=== PATIENT | male | born 1955 | race Two or more races ===

== ENCOUNTER 2023-06-30 08:48 | Day surgery (SDC) | payer BC ==
[2023-06-25 09:46] LABS: BASOPHILS # (AUTO) 0.1 X10'3 (0-0.2); BASOPHILS % (AUTO) 0.8 % (0-1); EOSINOPHILS # (AUTO) 0.3 X10'3 (0-0.9); EOSINOPHILS % (AUTO) 3.8 % (0-6); LYMPHOCYTES # (AUTO) 0.9 X10'3 (1.1-4.8); MEAN CORPUSCULAR HGB CONC 32.7 g/dL (33.0-36.5); MEAN CORPUSCULAR VOLUME 94.8 FL (78-98); MEAN PLATELET VOLUME 9.4 FL (7.4-10.4); MONOCYTES # (AUTO) 0.8 X10'3 (0-0.9); MONOCYTES % (AUTO) 11.1 % (2-12); NEUTROPHILS # (AUTO) 5.5 X10'3 (1.8-7.7); NEUTROPHILS % (AUTO) 72.3 % (42-75); PRE OP HEMATOCRIT 41.8 % (42.0-52.0); PRE OP HEMOGLOBIN 13.6 g/dL (14.0-17.9); PRE OP PLATELET COUNT 160 X10'3 (140-440); PRE OP WHITE BLOOD COUNT 7.6 10'3 (4.8-10.8); RED BLOOD COUNT 4.41 X10'6 (4.70-6.10); RED CELL DISTRIBUTION WIDTH 15.4 % (11.5-14.5)
[2023-06-25 10:00] LABS: ALKALINE PHOSPHATASE 107 IU/L (46-116); CHLORIDE 108 MMOL/L (99-107); PRE OP ANION GAP 12 (8-16); PRE OP POTASSIUM 4.8 MMOL/L (3.4-5.1); PRE OP SODIUM 137 MMOL/L (135-145); TOTAL CARBON DIOXIDE 17.5 MMOL/L (24-32); TOTAL PROTEIN 7.6 G/DL (6.4-8.2)
[2023-06-25 10:01] LABS: ALBUMIN 3.8 G/DL (3.4-5.0); BLOOD UREA NITROGEN 30 MG/DL (7-18); CALCIUM 9.2 MG/DL (8.5-10.1); PRE OP ALT 22 U/L (30-65); PRE OP AST 25 U/L (10-37); PRE OP GLUCOSE 153 MG/DL (70-104); eGFR 33 ML/MIN
[~2023-06-30] VITALS: Ht 157.5 cm; Wt 73.2 kg
[~2023-06-30 08:48] MED LIST: ATOR40TA72 PO; BUPIVAcaine/PF 2.5mg/ml (0.25%) 10ml vial ONE; CELE-127 PO; DOCUMENT DATE & TIME OF BETA-BLOCKER PO ONE; FURO40TA4 PO; LOSA25TA41 PO; METO-395 PO; SITA100T15 PO; ZAR2.5T PO; cefazolin 2gm/D5W 100mL 100 ML IV ONE; famotidine 20mg tablet PO ONE; ringers solution, lacted 1,000 ML IV SCH
[2023-06-30 09:20] VITALS: BP 115/65; PULSE 85; RESP 16; TEMP 97.5; O2SAT 100
[2023-06-30] MEDS ORDERED: LIDOcaine 1% 30ml preserv. free vial ONE (09:46)
[2023-06-30] MEDS ORDERED: fentaNYL/PF 50MCG/1 ML 2ML syringe ONE (10:10)
[2023-06-30] MEDS ORDERED: midazolam 1 mg/ML 2ml injection ONE (10:10)
[2023-06-30] MEDS ORDERED: sevoflurane 250ml liquid IH ONE (10:48)
[2023-06-30 11:38] VITALS: BP 109/78; PULSE 74; RESP 16; O2SAT 98
--- NOTE | 2023-06-30 11:38 | NUR ---
Received from OR via [facility] TO RR 7, accompanied by Anesthesiologist DUY and report given by Anesthesiologist. PATIENT A&OX4, PT DENIES N/V/PAIN, VSS, NEUROVASCULAR CHECKS INTACT, PIV TO RHAND 20G, ICE AND ELEVATION TO LEFT HAND CDI DRESSING.
[2023-06-30 11:50] VITALS: BP 113/84; PULSE 75; RESP 14; O2SAT 95
[2023-06-30 12:00] VITALS: BP 117/84; PULSE 74; RESP 10; O2SAT 95
[2023-06-30 12:10] VITALS: BP 129/90; PULSE 78; RESP 19; O2SAT 99
--- NOTE | 2023-06-30 12:38 | NUR ---
PT HAS MET D/C CRITERIA. IV D/C'D. VSS. DRESSING C/D/I. ICE INTACT. I HAVE REVIEWED D/C INSTRUCTIONS WITH PATIENT AND HE HAS VERBALIZED UNDERSTANDING OF INSTRUCTIONS. ALL QUESTIONS, COMMENTS, AND CONCERNS WERE ANSWERED AT THIS TIME. LEFT HAND DRESSING REMAINS CDI. PT WAS ABLE TO GET DRESSED WITH ASSISTANCE AND AMBULATED TO W/C WITH STANDBY ASSIST. PT WAS WHEELED OUT TO PRIVATE VEHICLE AND TRANSFERRED INTO VEHICLE WITHOUT INCIDENT. PATIENT D/C HOME WITH ALL BELONGINGS.
== END 2023-06-30 12:38 | disposition home or self-care (01) ==
LOC: PAS 08:48
PROVIDERS: ATTEND Orthopaedic Surgery Hand Surgery
DX: M65.312 Trigger thumb, left thumb (principal); M65.332 Trigger finger, left middle finger; M65.342 Trigger finger, left ring finger; R22.32 Localized swelling, mass and lump, left upper limb; M10.9 Gout, unspecified; I13.0 Hypertensive heart and chronic kidney disease with heart failure and stage 1 through stage 4 chronic kidney disease, or unspecified chronic kidney disease; E11.22 Type 2 diabetes mellitus with diabetic chronic kidney disease; N18.30 Chronic kidney disease, stage 3 unspecified; I50.9 Heart failure, unspecified; E78.5 Hyperlipidemia, unspecified; I25.2 Old myocardial infarction; Z87.442 Personal history of urinary calculi; Z79.899 Other long term (current) drug therapy
CPT/HCPCS: 26055; 26116; 36415; 80053; 82948; 85025; 93005; J0690; J2250; J3010; J3490; J7030; J7120; Z7506; Z7512; A4215; A6449

== ENCOUNTER 2023-11-03 05:13 | Day surgery (SDC) | payer BC ==
[2023-10-28 12:13] LABS: BASOPHILS # (AUTO) 0.1 X10'3 (0-0.2); BASOPHILS % (AUTO) 0.7 % (0-1); EOSINOPHILS # (AUTO) 0.3 X10'3 (0-0.9); LYMPHOCYTES # (AUTO) 0.7 X10'3 (1.1-4.8); LYMPHOCYTES % (AUTO) 7.5 % (21-51); MEAN CORPUSCULAR HEMOGLOBIN 30.8 PG (27.0-31.0); MEAN CORPUSCULAR HGB CONC 33.1 g/dL (33.0-36.5); MEAN CORPUSCULAR VOLUME 92.8 FL (78-98); MEAN PLATELET VOLUME 9.6 FL (7.4-10.4); MONOCYTES # (AUTO) 0.9 X10'3 (0-0.9); MONOCYTES % (AUTO) 10.4 % (2-12); NEUTROPHILS # (AUTO) 6.9 X10'3 (1.8-7.7); NEUTROPHILS % (AUTO) 78.4 % (42-75); PRE OP HEMATOCRIT 44.2 % (42.0-52.0); PRE OP HEMOGLOBIN 14.7 g/dL (14.0-17.9); PRE OP PLATELET COUNT 135 X10'3 (140-440); PRE OP WHITE BLOOD COUNT 8.8 10'3 (4.8-10.8); RED BLOOD COUNT 4.77 X10'6 (4.70-6.10); RED CELL DISTRIBUTION WIDTH 16.4 % (11.5-14.5)
[2023-10-28 12:29] LABS: ALBUMIN 3.7 G/DL (3.4-5.0); ALBUMIN/GLOBULIN RATIO 0.8 (1.1-1.5); ALKALINE PHOSPHATASE 174 IU/L (46-116); BLOOD UREA NITROGEN 51 MG/DL (7-18); BUN/CREATININE RATIO 25.5 (10.0-20.0); CALCIUM 9.1 MG/DL (8.5-10.1); PRE OP ALT 20 U/L (30-65); PRE OP AST 19 U/L (10-37); PRE OP BILIRUB, TOTAL 2.4 MG/DL (0.0-1.0); PRE OP POTASSIUM 4.6 MMOL/L (3.4-5.1); PRE OP SODIUM 135 MMOL/L (135-145); TOTAL CARBON DIOXIDE 24.5 MMOL/L (24-32); TOTAL PROTEIN 8.4 G/DL (6.4-8.2); eGFR 33 ML/MIN
[2023-10-28 12:31] LABS: CHLORIDE 102 MMOL/L (99-107); PRE OP ANION GAP 9 (8-16); PRE OP GLUCOSE 221 MG/DL (70-104)
[2023-11-03] VITALS (8 sets, daily range): BP systolic 110–128; BP diastolic 76–88; PULSE 65–77; RESP 14–17; TEMP 97.5; O2SAT 98–99
[~2023-11-03] VITALS: Ht 157.5 cm; Wt 70.8 kg
[~2023-11-03 05:13] MED LIST changes: -BUPIVAcaine/PF 2.5mg/ml (0.25%) 10ml vial ONE; -CELE-127 PO; -DOCUMENT DATE & TIME OF BETA-BLOCKER PO ONE; -ZAR2.5T PO; -cefazolin 2gm/D5W 100mL 100 ML IV ONE; -famotidine 20mg tablet PO ONE; -ringers solution, lacted 1,000 ML IV SCH
[2023-11-03] MEDS: ringers solution, lacted 1,000 ML IV SCH (06:24)
[2023-11-03] MEDS: famotidine 20mg tablet PO ONE (06:24)
[2023-11-03] MEDS: cefazolin 2gm/D5W 100mL 100 ML IV ONE (06:26)
[2023-11-03] MEDS: DOCUMENT DATE & TIME OF BETA-BLOCKER PO ONE (06:27)
[2023-11-03] MEDS ORDERED: LIDOcaine 1% (10mg/ml)w/preservative inj. 20ml MDV ONE (07:40)
[2023-11-03] MEDS ORDERED: ondansetron/PF 4mg/2ml inj IV PRN (07:45)
[2023-11-03] MEDS ORDERED: hydrALAZINE 20mg/ml inj. IV PRN (07:45)
[2023-11-03] MEDS ORDERED: morphine 4 MG/ML inj SYRINge IV PRN (07:45)
[2023-11-03] MEDS ORDERED: labetalol 20mg/4ml (5mg/ml) syringe IV PRN (07:45)
[2023-11-03] MEDS ORDERED: ringers solution, lacted 1,000 ML IV SCH (07:45)
[2023-11-03] MEDS ORDERED: morphine 2 MG/ML inj. syringe IV PRN (07:45)
[2023-11-03] MEDS ORDERED: fentaNYL/PF 50MCG/1 ML 2ML syringe ONE (07:54)
[2023-11-03] MEDS ORDERED: MIDAZolam 1 MG/ML 5ML VIAL ONE (07:55)
[2023-11-03] MEDS ORDERED: propofol inj 20 ML IV ONE (08:05)
[2023-11-03] MEDS ORDERED: LIDOcaine 2% (20mg/ml) 5ml vial ONE (08:05)
[2023-11-03] MEDS: LIDOcaine 2% (20mg/ml) 5ml vial ONE (08:22)
[2023-11-03] MEDS: BUPIVAcaine/PF 2.5mg/ml (0.25%) 10ml vial ONE (08:23)
== END 2023-11-03 09:45 | disposition home or self-care (01) ==
LOC: PAS 05:13
PROVIDERS: ATTEND Orthopaedic Surgery Hand Surgery
DX: M1A.0411 Idiopathic chronic gout, right hand, with tophus (tophi) (principal); I27.20 Pulmonary hypertension, unspecified; E11.22 Type 2 diabetes mellitus with diabetic chronic kidney disease; I12.9 Hypertensive chronic kidney disease with stage 1 through stage 4 chronic kidney disease, or unspecified chronic kidney disease; N18.30 Chronic kidney disease, stage 3 unspecified; E78.5 Hyperlipidemia, unspecified; I25.2 Old myocardial infarction; Z95.810 Presence of automatic (implantable) cardiac defibrillator; Z79.899 Other long term (current) drug therapy; Z87.442 Personal history of urinary calculi; Z98.890 Other specified postprocedural states
CPT/HCPCS: 26116; 36415; 80053; 82948; 85025; J0690; J2250; J2704; J3010; J3490; J7030; J7120; Z7506; Z7512; A4215; A4618; A7000